=== PATIENT | male | born 1995 | race Caucasian/White ===

== ENCOUNTER 2018-09-07 21:45 | Emergency (ER) | payer SELFPAY ==
[2018-09-07 22:00] VITALS: BP 129/81; PULSE 96; RESP 20; TEMP 98.3; O2SAT 98
[2018-09-07] MEDS ORDERED: Naproxen 550 mg Tab PO STA (22:23)
[2018-09-07] MEDS ORDERED: Naproxen 550 mg Tab PO ONE (22:28)
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
--- NOTE | 2018-09-08 09:11 | RAD ---
Date of service: 09/07/2018 PROCEDURE: Radiographs of the left elbow. HISTORY: trauma COMPARISON: No prior. FINDINGS: BONES: No displaced fracture identified throughout. Follow-up CT can be utilized if clinical concern remains. JOINTS: Normal. No osteoarthritis. SOFT TISSUES: Normal. JOINT EFFUSION: Anterior and posterior joint effusions are identified. OTHER FINDINGS: None IMPRESSION: No acute fracture, subluxation or dislocation identified. However, because the anterior and posterior fat pads are displace, underlying fracture is not completely excluded. Consider follow-up CT or MRI for further characterization of the left elbow.
== END 2018-09-07 23:05 | disposition home or self-care (01) ==
LOC: C.ER 21:45
DX: S42.402A Unspecified fracture of lower end of left humerus, initial encounter for closed fracture (principal); V18.4XXA Pedal cycle driver injured in noncollision transport accident in traffic accident, initial encounter; Y93.55 Activity, bike riding; Y92.89 Other specified places as the place of occurrence of the external cause